=== PATIENT | female | born 1990 | race Caucasian/White ===

== ENCOUNTER 2016-12-08 15:31 | Outpatient (CLI) | payer OTHER ==
[~2016-12-08] VITALS: Ht 172.7 cm; Wt 68.1 kg
[2016-12-08 15:42] VITALS: BP 128/72
== END 2016-12-08 17:44 | disposition home or self-care (01) ==
LOC: LDOP 15:31
PROVIDERS: ATTEND Student in an Organized Health Care Education/Training Program
DX: O26.892 Other specified pregnancy related conditions, second trimester (principal); R10.9 Unspecified abdominal pain; Z3A.24 24 weeks gestation of pregnancy
CPT/HCPCS: 59025; 81003; 99211; G0463

== ENCOUNTER 2017-02-17 10:00 | Outpatient (CLI) | payer OTHER ==
[~2017-02-17] VITALS: Ht 172.7 cm; Wt 83.4 kg
[2017-02-17 10:14] VITALS: BP 131/89
[2017-02-17] MEDS ORDERED: TERBUTALINE 1 MG/ML, 1ML ONE (12:52)
[2017-02-17] MEDS ORDERED: TERBUTALINE 1 MG/ML, 1ML SQ ONE (13:00)
[2017-02-17] MEDS ORDERED: BETAMETHASONE 6 MG/ML, 5ML IM ONE ×2 (13:00→13:06)
== END 2017-02-17 14:35 | disposition home or self-care (01) ==
LOC: LDOP 10:00
PROVIDERS: ATTEND Obstetrics & Gynecology
DX: O26.893 Other specified pregnancy related conditions, third trimester (principal); O62.9 Abnormality of forces of labor, unspecified; O23.593 Infection of other part of genital tract in pregnancy, third trimester; O47.03 False labor before 37 completed weeks of gestation, third trimester; R10.9 Unspecified abdominal pain; Z3A.34 34 weeks gestation of pregnancy
CPT/HCPCS: 59025; 81003; 87086; 87210; 87808; 96372; 99211; J0702; J3105; G0463

== ENCOUNTER 2017-02-18 12:56 | Outpatient (CLI) | payer OTHER ==
[~2017-02-18] VITALS: Ht 172.7 cm; Wt 83.6 kg
[2017-02-18] MEDS ORDERED: BETAMETHASONE 6 MG/ML, 5ML IM ONE (13:00)
[2017-02-18 13:01] VITALS: BP 120/75
[2017-02-18] MEDS ORDERED: PLEASE ENTER HEIGHT AND WEIGHT MC SCH (13:30)
== END 2017-02-18 13:40 | disposition home or self-care (01) ==
LOC: LDOP 12:56
PROVIDERS: ATTEND Obstetrics & Gynecology
DX: Z23 Encounter for immunization (principal)
CPT/HCPCS: 59025; 96372; 99211; J0702; G0463

== ENCOUNTER 2017-03-28 12:41 | Inpatient (IN) | payer OTHER ==
[~2017-03-28] VITALS: Ht 175.3 cm; Wt 85.0 kg
[2017-03-30] MEDS ORDERED: OXYTOCIN 30U/ 0.9% NaCL 500ML 500 ML IV PRN (05:59)
[2017-03-30] MEDS ORDERED: LACTATED RINGERS 1,000 ML IV SCH ×2 (05:59)
[2017-03-30] MEDS ORDERED: FENTANYL/BUPIV./NS/PF 250 ML EPIDCONT SCH (05:59)
[2017-03-30] MEDS ORDERED: D5%-LACTATED RINGERS 1,000 ML IV SCH (05:59)
[2017-03-30] MEDS ORDERED: OXYTOCIN 30U/ 0.9% NaCL 500ML 500 ML IV ONE (05:59)
[2017-03-30] MEDS ORDERED: FENTANYL PF 100 MCG/2ML IVPush PRN (06:00)
[2017-03-30] MEDS ORDERED: CALCIUM CARBONATE 500 MG TAB.CHEW PO PRN (06:00)
[2017-03-30] MEDS ORDERED: ONDANSETRON 2MG/ML, 2ML IVPush PRN (06:00)
[2017-03-30] MEDS ORDERED: LACTATED RINGERS 1,000 ML IVBOLUS PRN (06:00)
[2017-03-30] MEDS ORDERED: FENTANYL PF 100 MCG/2ML IV PRN (06:00)
[2017-03-30] MEDS ORDERED: NEWBORN KIT ONE (06:35)
[2017-03-30] MEDS ORDERED: MISOPROSTOL 25 MCG TABLET ONE ×2 (06:35→19:57)
[2017-03-30] MEDS ORDERED: OXYTOCIN 30U/ 0.9% NaCL 500ML 500 ML ONE (06:35)
[2017-03-30] MEDS: MISOPROSTOL 25 MCG TABLET VG PRN ×2 (06:40→20:00)
[2017-03-30 06:45] VITALS: BP 133/87
[2017-03-30 06:45] LABS: HEMATOCRIT 36.9 % (34.6-47.8); HEMOGLOBIN 12.6 g/dL (11.7-16.4); WHITE BLOOD COUNT 9.5 x10^3/uL (3.4-10)
[2017-03-30 19:01] VITALS: BP 131/75
[2017-03-31] MEDS ORDERED: MISOPROSTOL 25 MCG TABLET ONE (00:19)
== END 2017-03-31 01:00 | disposition home or self-care (01) | DRG 775 ==
LOC: LDIP 03-30 05:58
PROVIDERS: ADMIT Obstetrics & Gynecology; ATTEND Obstetrics & Gynecology
DX: O48.0 Post-term pregnancy (principal); Z37.0 Single live birth; E28.2 Polycystic ovarian syndrome; O26.893 Other specified pregnancy related conditions, third trimester; Z3A.40 40 weeks gestation of pregnancy
CPT/HCPCS: 36415; 85025; 86850; 86900

== ENCOUNTER 2017-04-04 19:49 | Inpatient (IN) | payer OTHER ==
[~2017-04-04] VITALS: Ht 172.7 cm; Wt 85.0 kg
[2017-04-04] MEDS ORDERED: D5%-LACTATED RINGERS 1,000 ML IV SCH (20:10)
[2017-04-04] MEDS ORDERED: OXYTOCIN 30U/ 0.9% NaCL 500ML 500 ML IV ONE (20:10)
[2017-04-04] MEDS: LACTATED RINGERS 1,000 ML IV SCH (20:24)
[2017-04-04] MEDS ORDERED: CALCIUM CARBONATE 500 MG TAB.CHEW PO PRN (20:30)
[2017-04-04] MEDS ORDERED: MISOPROSTOL 25 MCG TABLET VG PRN (20:30)
[2017-04-04] MEDS ORDERED: ONDANSETRON 2MG/ML, 2ML IVPush PRN (20:30)
[2017-04-04] MEDS ORDERED: FENTANYL PF 100 MCG/2ML IV PRN (20:30)
[2017-04-04 20:34] LABS: HEMATOCRIT 39.6 % (34.6-47.8); HEMOGLOBIN 13.7 g/dL (11.7-16.4); WHITE BLOOD COUNT 11.7 x10^3/uL (3.4-10)
[2017-04-04 20:40] LABS: BLOOD UREA NITROGEN 8 mg/dL (7-18)
[2017-04-04] MEDS ORDERED: MISOPROSTOL 25 MCG TABLET ONE (20:44)
[2017-04-04 20:45] LABS: ASPARTATE AMINO TRANSFERASE 15 U/L (15-37)
[2017-04-04] MEDS ORDERED: OXYTOCIN 30U/ 0.9% NaCL 500ML 500 ML ONE (21:59)
[2017-04-04] MEDS ORDERED: MISOPROSTOL 200 MCG TABLET ONE (22:00)
[2017-04-05] MEDS: LACTATED RINGERS 1,000 ML IV SCH ×3 (02:38→13:37)
[2017-04-05] MEDS ORDERED: FENTANYL PF 100 MCG/2ML ONE ×3 (06:29→09:22)
[2017-04-05] MEDS: FENTANYL PF 100 MCG/2ML IVPush PRN ×2 (06:30→08:03)
[2017-04-05] MEDS ORDERED: FENTANYL/BUPIV./NS/PF 250 ML EPIDCONT ONE (09:23)
[2017-04-05] MEDS ORDERED: BUPIVACAINE 0.25% ONE (09:23)
[2017-04-05] MEDS ORDERED: LIDOCAINE/PF 1.5%-EPI 1:200K, 30ML ONE (13:13)
[2017-04-05] MEDS ORDERED: OXYTOCIN 30U/ 0.9% NaCL 500ML 500 ML IV PRN (16:48)
[2017-04-05] MEDS ORDERED: ONDANSETRON 2MG/ML, 2ML ONE (19:09)
[2017-04-05] MEDS: OXYTOCIN 30U/ 0.9% NaCL 500ML 500 ML IV SCH (22:41)
[2017-04-05] MEDS ORDERED: MISOPROSTOL 200 MCG TABLET PR PRN (23:00)
[2017-04-05] MEDS ORDERED: ONDANSETRON 2MG/ML, 2ML IV PRN (23:00)
[2017-04-05] MEDS ORDERED: OXYcodone/APAP 5/325MG TABLET PO PRN ×2 (23:00)
[2017-04-05] MEDS ORDERED: IBUPROFEN 600 MG TABLET ONE (23:23)
[2017-04-05] MEDS: IBUPROFEN 600 MG TABLET PO PRN (23:25)
[2017-04-06 01:20] VITALS: BP 110/69
[2017-04-06 03:15] VITALS: BP 105/64
[2017-04-06] MEDS: OXYTOCIN 30U/ 0.9% NaCL 500ML 500 ML IV SCH (04:01)
[2017-04-06 06:34] LABS: HEMATOCRIT 33.3 % (34.6-47.8); HEMOGLOBIN 11.4 g/dL (11.7-16.4); WHITE BLOOD COUNT 24.4 x10^3/uL (3.4-10)
[2017-04-06 06:51] LABS: DIFF TOTAL CELLS COUNTED 100 CELL DIFF
[2017-04-06 06:53] LABS: VERIFY COUNTS? YES
[2017-04-06] MEDS ORDERED: PRENATAL VIT/IRON/FA 1 EACH TABLET ONE (07:02)
[2017-04-06] MEDS: IBUPROFEN 600 MG TABLET PO PRN ×3 (07:05→20:32)
[2017-04-06] MEDS: DOCUSATE 100 MG CAPSULE PO PRN ×2 (07:05→20:32)
[2017-04-06] MEDS: PRENATAL VIT/IRON/FA 1 EACH TABLET PO SCH (07:05)
[2017-04-06 07:36] VITALS: BP 113/72
[2017-04-06 11:44] VITALS: BP 112/70
[2017-04-06 16:40] VITALS: BP 121/81
[2017-04-06 21:40] VITALS: BP 106/64
[2017-04-07] MEDS: IBUPROFEN 600 MG TABLET PO PRN ×2 (02:25→08:27)
[2017-04-07] MEDS: OXYTOCIN 30U/ 0.9% NaCL 500ML 500 ML IV SCH ×2 (04:41→05:38)
[2017-04-07 07:35] VITALS: BP 114/73
[2017-04-07] MEDS: PRENATAL VIT/IRON/FA 1 EACH TABLET PO SCH (07:44)
[2017-04-07] MEDS: DOCUSATE 100 MG CAPSULE PO PRN (07:44)
[2017-04-07] MEDS ORDERED: OXYC-302 PO (10:32)
[2017-04-07] MEDS ORDERED: IBUP-1222 PO (10:32)
== END 2017-04-07 11:13 | disposition home or self-care (01) | DRG 775 ==
LOC: LDIP 19:49 → 2NW 04-06 01:15
PROVIDERS: ADMIT Obstetrics & Gynecology; ATTEND Obstetrics & Gynecology
PROC: 10E0XZZ Delivery of Products of Conception, External Approach (ICD-10-PCS; principal; 2017-04-05)
PROC: 0W8NXZZ Division of Female Perineum, External Approach (ICD-10-PCS; 2017-04-05)
PROC: 3E0R3BZ Introduction of Anesthetic Agent into Spinal Canal, Percutaneous Approach (ICD-10-PCS; 2017-04-05)
PROC: 00HU33Z Insertion of Infusion Device into Spinal Canal, Percutaneous Approach (ICD-10-PCS; 2017-04-05)
DX: O48.0 Post-term pregnancy (principal); O69.81X0 Labor and delivery complicated by cord around neck, without compression, not applicable or unspecified; Z37.0 Single live birth; Z3A.41 41 weeks gestation of pregnancy; O76 Abnormality in fetal heart rate and rhythm complicating labor and delivery; Z3A.00 Weeks of gestation of pregnancy not specified
CPT/HCPCS: 36415; 80053; 82248; 84550; 85025; 86850; 86900; J2405; J3010; J3490; J2590; J7120